=== PATIENT | male | born 1945 | race Caucasian/White ===

== ENCOUNTER 2019-03-19 22:45 | Emergency (ER) | payer MEDICARE ==
[~2019-03-19] VITALS: Ht 180.3 cm; Wt 93.0 kg
[2019-03-20 01:55] VITALS: BP 146/78
== END 2019-03-20 03:37 | disposition home or self-care (01) ==
LOC: ED 23:33
DX: N20.0 Calculus of kidney (principal); N39.0 Urinary tract infection, site not specified; R31.9 Hematuria, unspecified; Z95.2 Presence of prosthetic heart valve
CPT/HCPCS: 36415; 74176; 80053; 81001; 83690; 85025; 85610; 87086; 93005; 96374; 96375; 96376; 99284; J1885; J2270; J2405